=== PATIENT | female | born 1965 | race Caucasian/White ===

== ENCOUNTER 2017-10-31 12:38 | Outpatient (CLI) | payer BC ==
--- NOTE | 2017-10-31 14:26 | MMO ---
BILATERAL SCREENING MAMMOGRAM: Comparison: Prior mammograms dating back to March 2004. This study is interpreted with the assistance of computer aided detection. FINDINGS: No evidence of dominant mass, suspicious cluster of microcalcification, or architectural distortion. IMPRESSION: BIRADS 1 - negative. Annual screening mammography recommended. POS: [facility]
== END 2017-10-31 12:39 | disposition home or self-care (01) ==
LOC: SCSMAMMO 12:38
PROVIDERS: ATTEND Obstetrics & Gynecology
DX: Z12.31 Encounter for screening mammogram for malignant neoplasm of breast (principal)
CPT/HCPCS: 77067